=== PATIENT | male | born 1980 | race Caucasian/White ===

== ENCOUNTER 2017-05-06 19:59 | Inpatient (IN) | payer MEDICAID ==
[~2017-05-06] VITALS: Ht 167.6 cm; Wt 58.2 kg
[~2017-05-06 19:59] MED LIST: OLAN10TA6 PO
[2017-05-06 20:47] LABS: BASOPHILS % (AUTO) 0.4 % (0.0-2.0); HEMATOCRIT 43.5 % (41-53); HEMOGLOBIN 14.7 g/dL (13.5-17.5); LYMPHOCYTES # (AUTO) 1.6 K/uL (1.0-4.8); MEAN CORPUSCULAR HEMOGLOBIN 30.5 pg (26.0-34.0); MEAN CORPUSCULAR HGB CONC 33.7 G/dL (31.0-37.0); MEAN CORPUSCULAR VOLUME 91 fL (80-100); MONOCYTES # (AUTO) 0.6 K/uL (0.1-1.0); MONOCYTES % (AUTO) 7.9 % (2.0-9.0); NEUTROPHILS # (AUTO) 5.5 K/uL (1.8-7.7); NEUTROPHILS % (AUTO) 70.7 % (40.0-70.0); PLATELET COUNT (AUTO) 314 K/uL (150-450); RED BLOOD CELL COUNT(AUTO) 4.81 MIL/uL (4.50-5.90); RED CELL DISTRIBUTION WIDTH 13.8 % (11.5-14.5); WHITE BLOOD COUNT (AUTO) 7.8 K/uL (4.5-11.0)
[2017-05-06 21:00] LABS: ALANINE AMINOTRANSFERASE 23 U/L (12-78); ALBUMIN 4.4 g/dL (3.4-5.0); ANION GAP 10 mmol/L (8-16); ASPARTATE AMINOTRANSFERASE 17 U/L (15-37); BILIRUBIN,TOTAL 0.5 mg/dL (0.1-1.0); CALCIUM, TOTAL 8.6 mg/dL (8.8-10.5); CARBON DIOXIDE 28 mmol/L (22-29); CHLORIDE 104 mmol/L (98-107); CREATININE 1.06 mg/dL (0.60-1.30); GLOMERULAR FILTR. RATE CALC > 60 mL/min (>60); SODIUM SERUM 142 mmol/L (136-145); TOTAL PROTEIN, SERUM 7.8 g/dL (6.4-8.2); UREA NITROGEN, BLOOD 10 mg/dL (7-18)
[2017-05-06 21:03] LABS: POTASSIUM 2.9 mmol/L (3.5-5.1)
[2017-05-06] MEDS ORDERED: LORazepam 2 MG TABLET PO PRN (21:15)
[2017-05-06] MEDS ORDERED: ZOLPIDEM TARTRATE 10 MG TABLET PO PRN (21:15)
[2017-05-06] MEDS ORDERED: HALOPERIDOL 5 MG TABLET PO PRN (21:15)
[2017-05-06] MEDS ORDERED: POTASSIUM CHLORIDE 10% 40 MEQ/30 ML LIQUID UDCUP PO ONE (21:30)
[2017-05-06] MEDS ORDERED: LORazepam 2 MG TABLET PO ONE (21:30)
[2017-05-06] MEDS ORDERED: HALOPERIDOL 5 MG TABLET PO ONE (21:30)
[2017-05-07 06:57] LABS: CHOL/HDL RATIO 2.9 (4.2-7.3)
[2017-05-07 17:23] VITALS: BP 109/65
[2017-05-08 00:12] VITALS: BP 106/68
[2017-05-08 08:56] VITALS: BP 100/69
[2017-05-08 16:20] VITALS: BP 111/70
[2017-05-08] MEDS: OLANZapine 10 MG RAPDIS TABLET PO SCH (20:15)
[2017-05-09 00:56] VITALS: BP 100/61
[2017-05-09 08:47] VITALS: BP 108/60
[2017-05-09 16:18] VITALS: BP 117/76
[2017-05-09] MEDS: OLANZapine 10 MG RAPDIS TABLET PO SCH (20:17)
[2017-05-10 01:55] VITALS: BP 102/60
[2017-05-10 08:46] VITALS: BP 108/68
[2017-05-10 16:00] VITALS: BP 136/86
[2017-05-10] MEDS: OLANZapine 10 MG RAPDIS TABLET PO SCH (20:59)
[2017-05-11 06:00] VITALS: BP 105/65
[2017-05-11 09:10] VITALS: BP 131/73
== END 2017-05-11 14:30 | disposition home or self-care (01) | DRG 750 ==
LOC: EMS 20:00 → B2S 05-07 13:56
PROVIDERS: ADMIT Psychiatry & Neurology Psychiatry; ATTEND Psychiatry & Neurology Psychiatry
DX: F20.0 Paranoid schizophrenia (principal); E83.51 Hypocalcemia; E87.6 Hypokalemia; F15.10 Other stimulant abuse, uncomplicated
CPT/HCPCS: 84132; 99285; G0480